=== PATIENT | female | born 1990 | race Caucasian/White ===

== ENCOUNTER 2017-05-10 12:29 | Inpatient (IN) ==
[2017-05-10] MEDS ORDERED: IOPAMIDOL 100 ML BOTTLE IJ ONE (12:30)
[2017-05-10] MEDS ORDERED: KETOROLAC 30 MG/ML VIAL IV ONE (13:02)
[2017-05-10] MEDS ORDERED: ONDANSETRON 4 MG/2 ML VIAL IV ONE ×3 (13:02→17:40)
[2017-05-10] MEDS ORDERED: 0.9 % SODIUM CHLORIDE 1,000 ML IV ONE (13:09)
[2017-05-10 13:37] LABS: Basophils # (Auto) 0 K/mcL (0.0-0.3); Basophils % (Auto) 0.1 % (0.0-2.0); Eosinophils # (Auto) 0 K/mcL (0.0-0.7); Eosinophils % (Auto) 0.3 % (0.0-7.0); Granulocytes % (Auto) 84.9 % (38.0-78.0); Lymphocytes # (Auto) 0.9 K/mcL (1.5-4.8); Lymphocytes % (Auto) 6.6 % (15.5-49.0); Mean Cell Volume 91.5 fL (80.0-100.0); Mean Corpuscular HGB Conc 34.2 g/dL (31.0-36.0); Mean Corpuscular Hemoglobin 31.3 pg (26.0-34.0); Monocytes # (Auto) 1.1 K/mcL (0.1-0.9); Monocytes % (Auto) 8.1 % (1.0-12.0); Platelet Count 223 K/mcL (140-440); RBC 4.05 M/mcL (4.00-5.20); Red Cell Distribution Width 12.2 % (11.5-14.5)
[2017-05-10 13:59] LABS: ALT/SGPT 8 U/l (0-40); Albumin 4.1 gm/dL (3.2-5.2); Albumin/Globulin Ratio 1.1 (1.0-2.3); Alkaline Phosphatase 44 U/L (39-117); Amylase 48 U/L (28-100); Blood Urea Nitrogen 8 mg/dl (6-20); Lipase 25 U/L (7-60)
--- NOTE | 2017-05-10 14:44 | Ultrasound Report ---
CLINICAL INFORMATION: Right upper quadrant pain COMPARISON: None. FINDINGS: The liver is moderately enlarged with a vertical dimension of 18.5 cm. Parenchyma is diffusely hypoechoic suggestive of inflammation or edema - no focal hepatic lesion. Gallbladder and bile ducts are normal CBD is 4 mm. The pancreas is unremarkable. No free fluid IMPRESSION: Moderate hepatomegaly with decreased echotexture suggesting edema or inflammation.] LFTs. Gallbladder, bile ducts and pancreas are normal Interpreted and Authenticated by: Jovi Philip 05/10/17
[2017-05-10] MEDS ORDERED: ONDANSETRON 4 MG/2 ML VIAL IV PRN ×2 (15:53→18:24)
[2017-05-10] MEDS ORDERED: NALOXONE HCL 0.4 MG/ML VIAL IV PRN (15:53)
[2017-05-10] MEDS ORDERED: PIPERACILLIN SODIUM/TAZOBACTAM 3.375 GM in DEXTROSE 5% IN WATER 50 ML IV ONE (15:53)
--- NOTE | 2017-05-10 15:56 | Emergency Department Note ---
Abdominal Pain HPI - General Chief Complaint: Abdominal Pain Stated Complaint: right lower abd pain, nausea Time Seen by Provider: 05/10/17 13:01 Source: patient Mode of arrival: ambulatory Limitations: no limitations - History of Present Illness HPI Narrative: 26-year-old female with right upper quadrant/right lower quadrant pain for the last 4 days. It is a burning stabbing type pain. Omeprazole and Tums which normally helps with her previous ulcer type pain did not help this time. No fever but she does note night sweats. No vomiting or diarrhea. She is having some nausea though. She denies any sick exposures. She did see Dr. Coleman yesterday minor care and they did an ultrasound of the abdomen which was unrevealing. Comes in today for worsening pain - Related Data Home Medications Medication Instructions Recorded Confirmed omeprazole 20 mg capsule,delayed 20 mg PO QDAY 05/08/17 05/11/17 release Previous Rx's Medication Instructions Recorded norgestimate-ethinyl estradiol 1 tab PO QDAY #28 tab 08/10/16 0.18 mg/0.215mg/0.25mg-35 mcg(28)tablet Allergies Allergy/AdvReac Type Severity Reaction Status Date / Time Paroxetine [From Paxil] AdvReac Intermediate insomnia, Verified 05/11/17 02:01 irritability, restlessness Review of Systems All systems ED: reviewed and negative except as stated. Abdominal Pain PMH - Past Medical History Attestation: Yes: The following information was validated with the patient. Medical history: Reports: other (Peptic ulcer disease) Surgical history ED: Reports: no surgical history - Social History Smoking status: Former smoker Physical Exam Thin female. Normocephalic atraumatic. Conjunctive are clear sclerae nonicteric. No nasal discharge or congestion. Oropharynx pink and moist. Neck is supple without lymphadenopathy or thyromegaly. Heart is regular rate and rhythm no murmur appreciated. Lungs clear to auscultation bilaterally without wheezes rales rhonchi or respiratory distress. Abdomen is soft but tender right upper quadrant umbilicus and right lower quadrant. Mild guarding unclear if this peritoneal signs. No pedal edema. +2 radial pulse. Alert oriented Limitations: no limitations Course Vital Signs Temperature 98.9 F 05/10/17 12:29 Pulse Rate 106 H 05/10/17 12:29 Respiratory Rate 18 05/10/17 12:29 Blood Pressure 117/78 05/10/17 12:29 Pulse Oximetry (%) 100 05/10/17 12:29 Temperature 98.9 F 05/11/17 07:39 Pulse Rate 98 H 05/11/17 07:39 Respiratory Rate 16 05/11/17 07:39 Blood Pressure 92/59 05/11/17 07:39 Pulse Oximetry (%) 97 05/11/17 07:39 Abdominal Pain - Medical Records Medical records reviewed: Yes I reviewed the patient's medical records. - Lab Data Lab results reviewed: Yes I reviewed the patient's lab results. Result diagrams: 05/11/17 04:47 05/10/17 13:09 Lab Results 05/10/17 05/10/17 05/10/17 Range/Units 13:09 13:09 13:09 WBC 13.6 H (4.5-11.0) K/mcL RBC 4.05 (4.00-5.20) M/mcL Hgb 12.7 (12.0-15.0) g/dL Hct 37.1 (36.0-48.0) % POC Hct 37.0 (36.0-48.0) % MCV 91.5 (80.0-100.0) fL MCH 31.3 (26.0-34.0) pg MCHC 34.2 (31.0-36.0) g/dL RDW 12.2 (11.5-14.5) % Plt Count 223 (140-440) K/mcL MPV 7.1 L (7.4-10.4) fL Gran % 84.9 H (38.0-78.0) % Lymph % (Auto) 6.6 L (15.5-49.0) % [place] % (Auto) 8.1 (1.0-12.0) % Eos % (Auto) 0.3 (0.0-7.0) % Baso % (Auto) 0.1 (0.0-2.0) % Gran # 11.6 H (1.8-8.0) K/mcL Lymph # (Auto) 0.9 L (1.5-4.8) K/mcL [place] # (Auto) 1.1 H (0.1-0.9) K/mcL Eos # (Auto) 0 (0.0-0.7) K/mcL Baso # (Auto) 0 (0.0-0.3) K/mcL VBG Lactic Acid 0.7 (0.5-2.2) mmol/L POC Sodium 138 (133-145) mmol/L Sodium 138 (133-145) mmol/L POC Potassium 3.6 (3.3-5.1) mmol/L Potassium 3.7 (3.3-5.1) mmol/L POC Chloride 103 (96-108) mmol/L Chloride 99 (96-108) mmol/L Carbon Dioxide 23 (22-30) mmol/L POC Total CO2 24 (22-30) mmol/L Anion Gap 16.0 (8-16) POC BUN 7 (6-20) mg/dl BUN 8 (6-20) mg/dl Creatinine 0.9 (0.6-1.1) mg/dl POC Creatinine 0.8 (0.6-1.1) mg/dl GFR Calculation 87 Glucose 83 (70-105) mg/dL POC Glucose 85 (70-105) mg/dL Calcium 9.4 (8.6-10.4) mg/dl POC WB Ioniz Calcium 1.13 L (1.16-1.32) mmol/L Total Bilirubin 0.6 (0.0-1.0) mg/dL AST 12 (0-37) U/l ALT 8 (0-40) U/l Alkaline Phosphatase 44 (39-117) U/L Total Protein 7.7 (5.9-8.4) gm/dL Albumin 4.1 (3.2-5.2) gm/dL Globulin 3.6 (2.2-3.7) gm/dL Albumin/Globulin Ratio 1.1 (1.0-2.3) Amylase 48 (28-100) U/L Lipase 25 (7-60) U/L - Radiology Data Radiology results reviewed: Yes I reviewed the patient's radiology results. Initially ordered gallbladder ultrasound as I felt this was more of her right upper quadrant tenderness on exam and gallbladder was lead diagnosis possibility given her nausea and ulcer history. Gallbladder ultrasound was negative. As I had continued suspicion about right lower quadrant pain, with leukocytosis, I reexamined her and ordered the CT scan of the abdomen pelvis which showed perforated enthesitis Disposition Pt seen by [employer]/PA only: No Clinical Impression: Appendicitis with perforation Summary: Reviewed her note from Dr. Coleman yesterday as well as the ultrasound of the pelvis yesterday which was negative patient initially treated with pain medicine, nausea medicine, IV fluids and worked up with labs in gallbladder ultrasound. Ultrasound was negative but on reexamination of the belly pain had localized to right lower quadrant and so CT scan of the abdomen pelvis was ordered. This showed a perforated appendicitis and so I contacted Dr. Xavi Phelps, general surgeon, who agreed to accept the patient for further care. Physician orders are written Disposition: Xfer As Outpt/Obs ([facility]) Condition: Fair
--- NOTE | 2017-05-10 15:57 | Cat Scan Report ---
CLINICAL INFORMATION: Right lower quadrant pain nausea and elevated white blood cell count COMPARISON: None. TECHNIQUE: Following enteric contrast, 80 cc of Isovue-300 were injected intravenously, and 60 seconds later, 0.625 mm helical slices were obtained from the mid heart through the subtrochanteric regions. Following reconstruction, 2.5 mm sagittal, coronal and axial reformatted images were processed and reviewed at bone, lung and soft tissue windows. Five minutes later, 0.625 mm helical slices were obtained from the mid heart through the kidneys and viewed at soft tissue windows.The exam was performed using radiation dose optimization techniques including, but not limited to, automated exposure control, adjustment of the mA and/or kV according to patient size and use of iterative reconstruction technique. FINDINGS: Lung bases show no abnormality - no effusion. The visualized heart is normal. Images through the abdomen show the gallbladder and bile ducts, liver, both kidneys, adrenal glands, spleen, pancreas and aorta including aortic branches be normal in size configuration and attenuation without focal lesion. Images through the pelvis show urinary bladder to be normal. Uterus anteflexed and normal in size: 7.5 x 4 cm. There is a 5.5 cm thick-walled fluid collection in the right true pelvis which contains a 10 mm calcification. The right colon and cecum are elongated and extend all the way into this region. It appears that the abscess communicates with the cecum. This almost certainly represents a ruptured appendix which have evolved into a 5.5 cm periappendiceal abscess. There is inflammation in the surrounding fat. The remainder of the colon, small bowel and stomach are normal. There are no osseous abnormalities. IMPRESSION: 5.5 cm thick-walled fluid collection in the deep true pelvis which contains a 10 mm calcification. This almost certainly a ruptured appendix containing an appendicolith which has evolved into a periappendiceal abscess. This diagnosis is also supported clinically. A tubular ovarian abscess is possible, but less likely. Interpreted and Authenticated by: Jovi Philip 05/10/17
[2017-05-10] MEDS ORDERED: 0.9 % SODIUM CHLORIDE 1,000 ML IV SCH (16:00)
[2017-05-10] MEDS ORDERED: HYDROmorphone 2 MG/ML SYRINGE IV ONE (16:27)
--- NOTE | 2017-05-10 17:19 | General Surg History&Physical ---
History of Present Illness Patient information: Note initiated : 05/10/17 at 5:17 pm Service Date, if different from initiated Date: [] Patient: Esha Denise a 26 y/o F admitted on for right lower abd pain, nausea. Chief Complaint: [] HPI: Ms. Denise is a 26 year old F admitted with right lower quadrant pain. She had onset of bilateral lower abdominal pain with nausea on Monday. The pain progressed and she was seen in urgent care on Monday where she was noted to have bilateral lower quadrant tenderness with a normal white count. test was negative. She had a transvaginal ultrasound done which was negative. She was treated symptomatically however her pain increased and she had nausea with vomiting. She came to the emergency room today [place] [id number] of the abdomen shows a pericecal abscess with fecalith and tissue edema compatible with possible perforated appendix with appendiceal abscess.. She is admitted and will have appendectomy.. Review of Systems - Constitutional anorexia, fever(s), headache(s), malaise, weight loss - EENT Nose, mouth and throat: dizziness, headache(s), no dysphagia - Cardiovascular diaphoresis, no chest pain with activity, no dyspnea on exertion, no palpatations, no rapid heart rate, no syncope - Respiratory no dyspnea on exertion, no wheezing, no chest congestion, no pain with cough - Gastrointestinal abdominal pain, bloating, heartburn, nausea, vomiting - Genitourinary Genitourinary: no nocturia, no urinary frequency, no urinary hesitancy, no urinary urgency - Musculoskeletal no arthralgias, no myalgias, no numbness, no stiffness - Integumentary no changing lesions, no pruritus, no rash - Neurological dizziness, headache(s), no abnormal gait, no abnormal hearing, no confusion, no convulsions - Psychiatric abnormal sleep pattern, anxiety, depression - Endocrine no fatigue, no polydipsia, no polyphagia, no polyuria - Hematologic/Lymphatic no easy bleeding, no easy bruising, no lymphadenopathy - Allergic/Immunologic no tongue swelling, no throat swelling, no uticaria, no wheezing, no lip swelling Past History Past medical history: no chronic medical condition Past surgical history: no operative procedures Past family history: diabetes mellitus Hypertension 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 : Tobacco use Occasional wine use Negative drug use Medications and Allergies Home Medications Medication Instructions Recorded Confirmed Type norgestimate-ethinyl estradiol 1 tab PO QDAY #28 tab 08/10/16 05/10/17 Rx 0.18 mg/0.215mg/0.25mg-35 mcg(28)tablet omeprazole 20 mg capsule,delayed 20 mg PO QDAY 05/08/17 05/10/17 History release Allergies Allergy/AdvReac Type Severity Reaction Status Date / Time morphine AdvReac Intermediate Vomiting Verified 05/10/17 16:47 Paroxetine [From Paxil] AdvReac Intermediate insomnia, Verified 05/08/17 13:23 irritability, restlessness Exam Temp Pulse Resp BP Pulse Ox 98.9 F 88 18 116/63 100 05/10/17 12:29 05/10/17 17:12 05/10/17 17:12 05/10/17 17:12 05/10/17 17:12 - General physical appearance well developed, well nourished, no distress - Eyes PERRL, normal ocular movement - ENT normal pinna, normal nares, normal mucosa, no hearing loss, no congestion - Head Head exam IM: Present: atraumatic, normocephalic - Neck no masses, no bruits, trachea midline, no lymphadectomy, no venous distension - Cardiovascular Cardiovascular exam IM: Present: normal rate and rhythm - Respiratory normal expansion, normal respiratory effort, clear to percussion, clear to auscultation - Abdomen Abdomen: Present: soft, tender, bowel sounds, distended (diffusely distended with tenderness in both lower quadrants and suprapubic area; guarding with rebound right lower quadrant) Hernia: Present: none - Genitourinary Present: normal external genitalia - Integumentary Present: no rash, no growths, no abnormal pigmentation - Neurologic Present: normal coordination, normal sensation - Musculoskeletal Present: normal gait, normal posture - Psychiatric Present: oriented to time, oriented to person, oriented to place, speech is normal, memory intact Assessment and Plan (1) Appendicitis with perforation patient counseled for laparoscopic appendectomy with drainage of pelvic abscess. This will be done tonight Started on Zosyn 3.375 g IV every 6 Status: Acute (2) Pelvic abscess Status: Acute (3) Anxiety Status: Chronic Comment: along with depression (4) Depression Status: Chronic Comment: her biological father (traumatic ) when she was about 6 years old and her step father committed suicide in 2008; was previously treated with Paxil but could not handle side effects (insomnia, restlessness, anxiety) Qualifiers: Depression Type: major depressive disorder Major depression recurrence: recurrent Active/Remission status: currently active Major depression episode severity: moderate Qualified Code(s): F33.1 - Major depressive disorder, recurrent, moderate
[2017-05-10] MEDS ORDERED: PROPOFOL 200 MG/20 ML VIAL IV ONE (17:40)
[2017-05-10] MEDS ORDERED: LIDOCAINE HCL/PF 100 MG/5 ML SYRINGE IV ONE (17:40)
[2017-05-10] MEDS ORDERED: KETAMINE 100 MG/ML ML IV ONE (17:40)
[2017-05-10] MEDS ORDERED: GLYCOPYRROLATE 0.2 MG/ML VIAL IV ONE (17:40)
[2017-05-10] MEDS ORDERED: MIDAZOLAM 5 MG/5 ML VIAL IV ONE (17:40)
[2017-05-10] MEDS ORDERED: ROCURONIUM 10 MG/ML ML IV ONE (17:40)
[2017-05-10] MEDS ORDERED: fentaNYL 100 MCG/2 ML VIAL IV ONE ×2 (17:40→19:52)
[2017-05-10] MEDS ORDERED: NEOSTIGMINE 1 MG/ML VIAL IV ONE (17:40)
[2017-05-10] MEDS ORDERED: MEPERIDINE 50 MG/ML SYRINGE IM PRN (18:24)
[2017-05-10] MEDS ORDERED: MEPERIDINE 25 MG/ML SYRINGE IV PRN (18:24)
[2017-05-10] MEDS ORDERED: IPRATROPIUM/ALBUTEROL 3 ML AMPUL.NEB NEB PRN (18:24)
[2017-05-10] MEDS ORDERED: PROMETHAZINE 25 MG/ML VIAL IV PRN (18:24)
[2017-05-10] MEDS ORDERED: PROMETHAZINE 25 MG/ML VIAL IM PRN (18:24)
[2017-05-10] MEDS ORDERED: LACTATED RINGERS 1,000 ML IV SCH (18:30)
--- NOTE | 2017-05-10 19:21 | Brief Operative Note ---
Date of procedure: 05/10/17 Pre-op diagnosis: acute appendicitis with possible abscess Post-op diagnosis: other (acute suppurative appendicitis without perforation but pelviphlegmon) Procedure: laparoscopic appendectomy Grafts/Implants: No Anesthesia: GETA Findings: large thickened appendix deep in pelvis adherent to uterus and bladder but not perforated base of appedix thickened but staple line looked secure Complications: none Surgeon: Javon Phelps Estimated blood loss (cc): 20 Specimens Removed/Pathology: other (appendix) Condition: stable Disposition: PACU
[2017-05-10] MEDS ORDERED: PROMETHAZINE 25 MG/ML VIAL ONE (19:38)
[2017-05-10] MEDS ORDERED: MEPERIDINE 50 MG/ML SYRINGE ONE (19:38)
[2017-05-10] MEDS ORDERED: ONDANSETRON 4 MG/2 ML VIAL ONE (19:52)
[2017-05-10] MEDS: fentaNYL 100 MCG/2 ML VIAL IV PRN ×3 (19:53→20:14)
[2017-05-10] MEDS ORDERED: SCOPOLAMINE 1 PATCH PATCH TOPICAL ONE (20:28)
[2017-05-10] MEDS ORDERED: ACETAMINOPHEN 325 MG TABLET PO PRN (20:40)
[2017-05-10] MEDS ORDERED: SCOPOLAMINE 1 PATCH PATCH ONE (20:43)
[2017-05-10] MEDS: HYDROmorphone 2 MG/ML SYRINGE IV PRN ×2 (20:52→22:59)
[2017-05-10] MEDS ORDERED: HYDROmorphone 2 MG/ML SYRINGE ONE (20:55)
[2017-05-10 21:47] LABS: Basophils # (Auto) 0 K/mcL (0.0-0.3); Basophils % (Auto) 0.1 % (0.0-2.0); Eosinophils # (Auto) 0 K/mcL (0.0-0.7); Eosinophils % (Auto) 0.1 % (0.0-7.0); Granulocytes % (Auto) 84.8 % (38.0-78.0); Lymphocytes # (Auto) 0.9 K/mcL (1.5-4.8); Lymphocytes % (Auto) 10.4 % (15.5-49.0); Mean Cell Volume 91.8 fL (80.0-100.0); Mean Corpuscular HGB Conc 34.5 g/dL (31.0-36.0); Mean Corpuscular Hemoglobin 31.7 pg (26.0-34.0); Monocytes # (Auto) 0.4 K/mcL (0.1-0.9); Monocytes % (Auto) 4.6 % (1.0-12.0); Platelet Count 188 K/mcL (140-440); RBC 3.34 M/mcL (4.00-5.20); Red Cell Distribution Width 12.2 % (11.5-14.5)
[2017-05-10] MEDS: 0.9 % SODIUM CHLORIDE 10 ML SYRINGE IV SCH (22:34)
[2017-05-10] MEDS: LACTATED RINGERS 1,000 ML IV SCH (22:59)
[2017-05-10] MEDS: PIPERACILLIN SODIUM/TAZOBACTAM 3.375 GM in DEXTROSE 5% IN WATER 50 ML IV SCH (22:59)
[2017-05-10] MEDS ORDERED: LORazepam 2 MG/ML VIAL IV PRN (23:08)
[2017-05-11] MEDS: LACTATED RINGERS 1,000 ML IV SCH ×2 (02:04→22:11)
[2017-05-11] MEDS: oxyCODONE/APAP 5/325MG TABLET PO PRN ×4 (02:04→15:19)
[2017-05-11] MEDS ORDERED: LORazepam 2 MG/ML VIAL ONE (03:22)
[2017-05-11] MEDS: PIPERACILLIN SODIUM/TAZOBACTAM 3.375 GM in DEXTROSE 5% IN WATER 50 ML IV SCH ×4 (05:46→22:25)
[2017-05-11] MEDS: 0.9 % SODIUM CHLORIDE 10 ML SYRINGE IV SCH ×3 (05:47→22:05)
[2017-05-11] MEDS ORDERED: HYDROmorphone 2 MG/ML SYRINGE ONE (05:58)
[2017-05-11 06:14] LABS: Basophils # (Auto) 0 K/mcL (0.0-0.3); Basophils % (Auto) 0.1 % (0.0-2.0); Eosinophils # (Auto) 0.1 K/mcL (0.0-0.7); Eosinophils % (Auto) 0.5 % (0.0-7.0); Granulocytes % (Auto) 83.9 % (38.0-78.0); Lymphocytes # (Auto) 1.1 K/mcL (1.5-4.8); Lymphocytes % (Auto) 9.3 % (15.5-49.0); Mean Cell Volume 92.3 fL (80.0-100.0); Mean Corpuscular HGB Conc 33.4 g/dL (31.0-36.0); Mean Corpuscular Hemoglobin 30.8 pg (26.0-34.0); Monocytes # (Auto) 0.7 K/mcL (0.1-0.9); Monocytes % (Auto) 6.2 % (1.0-12.0); Platelet Count 201 K/mcL (140-440); Red Cell Distribution Width 12.2 % (11.5-14.5)
[2017-05-11] MEDS: ONDANSETRON 4 MG/2 ML VIAL IV PRN ×3 (09:26→21:02)
[2017-05-11] MEDS: HYDROmorphone 2 MG/ML SYRINGE IV PRN ×4 (11:06→19:12)
--- NOTE | 2017-05-11 12:51 | General Surgery Progress Note ---
Surgical - Auxillary Note - Subjective Patient Information: Note initiated : 05/11/17 at 12:40 pm Service Date, if different from initiated Date: [] Patient: Esha Denise 26 y/o F admitted on 05/10/17 for RT Low Abd Pain, Nausea/Appendicitis w/Perforation. Chief Complaint: Patient resting in bed. Reports pain in lower abdomen--"hurts to move" Denies nausea or emesis but not feeling hungry or thirsty. Vital Signs Temp Pulse Resp BP Pulse Ox 98.9 F 98 H 16 92/59 97 05/11/17 07:39 05/11/17 07:39 05/11/17 07:39 05/11/17 07:39 05/11/17 07:39 Period Temp Pulse Resp BP Sys/Bar Pulse Ox Last 24 Hr 97.5 F-102.3 F 82-130 14-23 90-121/45-77 96-100 Intake and Output 05/10/17 05/11/17 05/11/17 21:59 05:59 13:59 Intake Total 2350 / 2350 478 / 478 50 / 50 Output Total 315 / 315 500 / 500 500 / 500 Balance 2035 / 2035 -22 / -22 -450 / -450 Weight 121 lb 121 lb Patient Weight 05/12/17 05:59 Weight 121 lb PE: No distress but appears uncomfortable. Chest: clear bilaterally CV: regular rhythm ABD: soft, moderately distended and tender at incisions and in lower right and mid abdomen. No rebound. PRAFUL drain serosanguineous. EXT: warm, no edema. DP pulses palpable. CBC and Chem 7 05/11/17 04:47 05/10/17 13:09 A/P: s/p appendectomy for appendicitis with phlegmon. Continue IV abx for at least 3-4 more days and then convert to p.o. antibiotics. PRAFUL drain to remain for [address] Phelps Post op ileus by exam: expected. Await return of bowel function. Add IV tylenol for pain control
[2017-05-11] MEDS: ACETAMINOPHEN 1,000 MG/100 ML BOTTLE IV PRN ×2 (13:04→20:49)
[2017-05-11] MEDS: DEXTROSE 5%-1/2NS W/20MEQ KCL 1,000 ML IV SCH (13:57)
[2017-05-11] MEDS: traMADol 50 MG TABLET PO PRN (21:30)
[2017-05-12] MEDS: DEXTROSE 5%-1/2NS W/20MEQ KCL 1,000 ML IV SCH ×3 (01:02→23:11)
[2017-05-12] MEDS: traMADol 50 MG TABLET PO PRN ×6 (01:03→23:10)
[2017-05-12] MEDS: PIPERACILLIN SODIUM/TAZOBACTAM 3.375 GM in DEXTROSE 5% IN WATER 50 ML IV SCH ×4 (04:07→23:11)
[2017-05-12] MEDS: ONDANSETRON 4 MG/2 ML VIAL IV PRN ×3 (04:08→21:43)
[2017-05-12] MEDS: HYDROmorphone 2 MG/ML SYRINGE IV PRN ×2 (04:08→12:16)
[2017-05-12] MEDS: ACETAMINOPHEN 1,000 MG/100 ML BOTTLE IV PRN ×3 (04:57→21:30)
[2017-05-12] MEDS: 0.9 % SODIUM CHLORIDE 10 ML SYRINGE IV SCH ×3 (06:00→23:11)
[2017-05-12 11:26] LABS: Appearance,Urine CLEAR; Bilirubin,Urine NEG (NEG); Color,Urine STRAW; Glucose,Urine (UA) NEGATIVE (NEG); Leukocyte Esterase,Urine NEG /uL (NEG); Nitrate,Urine NEG (NEG); Protein,Urine NEG (NEG); Specific Gravity,Urine 1.006 (1.000-1.035); Urine Blood NEG mg/dL (<0.03); Urobilinogen,Urine NEG (NEG)
--- NOTE | 2017-05-12 11:32 | General Surgery Progress Note ---
Surgical - Auxillary Note - Subjective Patient Information: Note initiated : 05/12/17 at 11:28 am Service Date, if different from initiated Date: [] Patient: Esha Denise 26 y/o F admitted on 05/10/17 for RT Low Abd Pain, Nausea/Appendicitis w/Perforation. Chief Complaint: patient resting in bed. reports that she feels better this morning. Adjustment and pain medications were made last night; tried tramadol. She reports the tramadol has been helpful. She continues to use twice a day Tylenol [facility] also offers good pain control. Nausea much improved. Denies flatus. Vital Signs Temp Pulse Resp BP Pulse Ox 98.9 F 100 H 16 105/59 92 05/12/17 07:19 05/12/17 04:00 05/12/17 07:19 05/12/17 07:19 05/12/17 07:19 Period Temp Pulse Resp BP Sys/Bar Pulse Ox Last 24 Hr 97.7 F-100.7 F 73-105 16-18 93-113/57-67 92-100 Intake and Output 05/11/17 05/12/17 05/12/17 21:59 05:59 13:59 Intake Total 630 / 630 2000 / 2000 1000 / 1000 Output Total 1750 / 1750 1900 / 1900 670 / 670 Balance -1120 / -1120 100 / 100 330 / 330 Weight 121 lb PE: CV: Regular rhythm PULM: Breath sounds clear bilate.ally. Taking Deeper inspirations today ABD: Soft, mild distention. Tender in lower abdomen a little less than yesterday. No guarding. PRAFUL drain serosanguineous. hypoactive bowel sounds. A/P: Stable postop. Postop ileus, await return of bowel function. Until then only sips of clear liquids as tolerated
--- NOTE | 2017-05-12 13:07 | Surgical Pathology Report ---
HISTOLOGY SPECIMEN MICROSCOPIC DIAGNOSIS APPENDIX, APPENDECTOMY: -- ACUTE APPENDICITIS WITH ASSOCIATED FIBRINOPURULENT SEROSITIS. (SE:gerard) PROCEDURAL IMPRESSION Appendicitis with perforation. GROSS DESCRIPTION Received in formalin labeled with the patient information and further designated as appendix on the requisition, is a 6.2 cm long by up to 1.9 cm in diameter purple-hdez appendix with up to 2.5 cm of attached yellow-hdez adipose tissue. The margin is stapled. There is a clip in the attached adipose tissue. There is a thickened yellow-hdez possible exudate on the surface and several disrupted areas. The lumen contains a small amount of red-brown hemorrhagic material. There is an apparent perforation near the stapled margin. Hardness Inspector sections submitted - three cassettes. ([facility]) Electronically Signed by: Ebony Jamison D.O.
[2017-05-12] MEDS ORDERED: HYDROmorphone 2 MG/ML SYRINGE IV ONE (13:36)
[2017-05-13] MEDS: ONDANSETRON 4 MG/2 ML VIAL IV PRN (03:03)
[2017-05-13] MEDS: HYDROmorphone 2 MG/ML SYRINGE IV PRN ×2 (03:24→15:14)
[2017-05-13] MEDS: traMADol 50 MG TABLET PO PRN ×5 (04:58→23:18)
[2017-05-13] MEDS: PIPERACILLIN SODIUM/TAZOBACTAM 3.375 GM in DEXTROSE 5% IN WATER 50 ML IV SCH ×4 (06:00→23:18)
[2017-05-13 06:37] LABS: Basophils # (Auto) 0 K/mcL (0.0-0.3); Basophils % (Auto) 0.4 % (0.0-2.0); Eosinophils # (Auto) 0.3 K/mcL (0.0-0.7); Eosinophils % (Auto) 2.7 % (0.0-7.0); Granulocytes % (Auto) 79.1 % (38.0-78.0); Lymphocytes % (Auto) 10.1 % (15.5-49.0); Mean Cell Volume 91.5 fL (80.0-100.0); Mean Corpuscular HGB Conc 33.9 g/dL (31.0-36.0); Monocytes # (Auto) 0.7 K/mcL (0.1-0.9); Monocytes % (Auto) 7.7 % (1.0-12.0); Platelet Count 231 K/mcL (140-440); Red Cell Distribution Width 12.5 % (11.5-14.5)
[2017-05-13] MEDS: 0.9 % SODIUM CHLORIDE 10 ML SYRINGE IV SCH ×2 (06:44→15:19)
--- NOTE | 2017-05-13 09:54 | General Surgery Progress Note ---
Surgical - Auxillary Note - Subjective Patient Information: Note initiated : 05/13/17 at 9:48 am Service Date, if different from initiated Date: [] Patient: Esha Denise 26 y/o F admitted on 05/10/17 for RT Low Abd Pain, Nausea/Appendicitis w/Perforation. Chief Complaint: Patient rested well overnight. Abdominal pain slightly improved. Passed some flatus last night but still having nausea. Taking some clears p.o. but not really hungry or thirsty. Vital Signs Temp Pulse Resp BP Pulse Ox 97.8 F 85 16 108/64 100 05/13/17 06:19 05/13/17 04:00 05/13/17 06:19 05/13/17 06:19 05/13/17 06:19 Period Temp Pulse Resp BP Sys/Bar Pulse Ox Last 24 Hr 97.6 F-99.0 F 79-90 16-20 98-108/52-68 96-100 Intake and Output 05/12/17 05/13/17 05/13/17 21:59 05:59 13:59 Intake Total 1770 / 1770 950 / 950 50 / 50 Output Total 1335 / 1335 640 / 640 300 / 300 Balance 435 / 435 310 / 310 -250 / -250 Weight 122 lb 8 oz PE: No acute distress Chest: clear bilaterally CV: regular rate and rhythm ABD:Moderately distended. Hypoactive bowel tones. PRAFUL with serous output. Incisions intact without erythema or discharge. CBC and Chem 7 05/13/17 05:00 05/10/17 13:09 A/P: s/p lap appendectomy for appendicitis with phlegmon Pain control currently adequate. Leukocytosis improved. Return of some bowel function but still nauseated. Will stay with clears p.o. until nausea improved.
[2017-05-13] MEDS: ACETAMINOPHEN 1,000 MG/100 ML BOTTLE IV PRN ×2 (15:25→23:56)
[2017-05-13] MEDS: DEXTROSE 5%-1/2NS W/20MEQ KCL 1,000 ML IV SCH (23:43)
[2017-05-14] MEDS: 0.9 % SODIUM CHLORIDE 10 ML SYRINGE IV SCH ×4 (00:02→21:03)
[2017-05-14] MEDS: PIPERACILLIN SODIUM/TAZOBACTAM 3.375 GM in DEXTROSE 5% IN WATER 50 ML IV SCH (05:59)
[2017-05-14] MEDS: traMADol 50 MG TABLET PO PRN ×4 (06:00→23:32)
--- NOTE | 2017-05-14 07:35 | General Surgery Progress Note ---
Surgical - Auxillary Note - Subjective Patient Information: Note initiated : 05/14/17 at 7:35 am Service Date, if different from initiated Date: [] Patient: Esha Denise 26 y/o F admitted on 05/10/17 for RT Low Abd Pain, Nausea/Appendicitis w/Perforation. Chief Complaint: Patient resting in bed. Says she feels better this morning. Pain control good. Feels less bloated. Still passing flatus, no stool as of yet. No nausea this morning. Vital Signs Temp Pulse Resp BP Pulse Ox 98.0 F 89 14 106/50 100 05/14/17 03:33 05/14/17 03:33 05/14/17 03:33 05/14/17 03:33 05/14/17 03:33 Period Temp Pulse Resp BP Sys/Bar Pulse Ox Last 24 Hr 98.0 F-98.6 F 70-89 14-16 92-106/50-66 95-100 Intake and Output 05/13/17 05/14/17 05/14/17 21:59 05:59 13:59 Intake Total 1100 / 1100 1150 / 1150 Output Total 1560 / 1560 840 / 840 Balance -460 / -460 310 / 310 Weight 122 lb PE: No distress. Appears more comfortable than previously Chest: clear to auscultation bilaterally CV: regular rate and rhythm ABD: mild distention: less than yesterday. RLQ and suprapubic tenderness: also less than yesterday. No guarding and rebound. PRAFUL drain with serous output. EXT: warm, no edema. DP pulses palpable bilaterally. A/P: s/p appendectomy for appendicitis with phlegmon. Post op ileus resolving. Patient feeling less bloated and hungry today. Nausea better and passing flatus. Advance diet as tolerated. Change abx to p.o. Will keep on abx for few more days as per Dr. Phelps's recommendation at checkout. May shower.
[2017-05-14] MEDS ORDERED: ACETAMINOPHEN 500 MG TABLET PO PRN (13:45)
[2017-05-14] MEDS: CIPROFLOXACIN 500 MG TABLET PO SCH (20:59)
[2017-05-15] MEDS: traMADol 50 MG TABLET PO PRN ×2 (04:52→12:28)
[2017-05-15] MEDS: 0.9 % SODIUM CHLORIDE 10 ML SYRINGE IV SCH (06:30)
[2017-05-15] MEDS: CIPROFLOXACIN 500 MG TABLET PO SCH (08:13)
--- NOTE | 2017-05-15 10:47 | General Surgery Progress Note ---
Surgical - Auxillary Note - Subjective Patient Information: Note initiated : 05/15/17 at 10:43 am Service Date, if different from initiated Date: [] Patient: Esha Denise 26 y/o F admitted on 05/10/17 for RT Low Abd Pain, Nausea/Appendicitis w/Perforation. Chief Complaint: Patient feeling much better. took in regular diet yesterday. Started on Cipro p.o. last night without issue. Nausea resolved. P.O meds of tramadol and tylenol adequate for pain Vital Signs Temp Pulse Resp BP Pulse Ox 98.7 F 72 18 102/64 98 05/15/17 06:53 05/15/17 06:53 05/15/17 06:53 05/15/17 06:53 05/15/17 06:53 Period Temp Pulse Resp BP Sys/Bar Pulse Ox Last 24 Hr 98.0 F-98.7 F 72-88 16-18 96-105/57-67 97-100 Intake and Output 05/14/17 05/15/17 05/15/17 21:59 05:59 13:59 Intake Total 800 / 800 500 / 500 Output Total 2450 / 2450 200 / 200 Balance -1650 / -1650 300 / 300 Weight 122 lb PE: No distress Abd: soft. Mild RLQ tenderness, no rebound or guarding. PRAFUL serous. Incisions C/D /I a/p: s/p appendectomy Stable post op with return of bowel function Home on p.o. abx and with p.o. pain meds. f/u in clinic later this week.
--- NOTE | 2017-05-30 11:14 | Operative Note ---
DATE OF OPERATION: 05/10/2017 PREOPERATIVE DIAGNOSIS: Acute appendicitis with possible abscess. POSTOPERATIVE DIAGNOSIS: Acute suppurative appendicitis with pelvic phlegmon but without perforation. PROCEDURE: Laparoscopic appendectomy. SURGEON: Javon Phelps M.D. FINDINGS: Large, thickened appendix deep in the pelvis with dense adherence to the uterus and bladder forming a phlegmon but no perforation. The base of the appendix was thickened, but there was enough viable tissue for a secure staple line. DESCRIPTION: Under general anesthesia, the patient's abdomen was prepped and draped in a sterile field. Supraumbilical incision was made. Veress needle was inserted uneventfully. Abdomen was insufflated with 2 liters of CO2. A 12 mm port was placed. Laparoscope was placed. There was free fluid in the pelvis, but it was not purulent. The cecum was very long and extended into the deep pelvis. The patient was placed in deep Trendelenburg position and rotated to the left. Under videoscopic guidance, a 5 mm port was placed in the suprapubic midline and a 12 mm port in the left lower quadrant. Using blunt dissection, the cecum was pulled from the pelvis. The tubes and ovaries were inflamed but were not involved in the inflammatory process. The appendix was very large and seropurulent with adherence to the posterior wall of the bladder as well as to the inferior surface of the uterus near the ureterocervical junction. More blunt dissection was carried out to free this inflammatory process up. Once this was done, the cecum was mobilized and was removed entirely out of the pelvis. The base of the appendix was extremely thickened, and the inflammation extended to the cecal wall with a very small margin of apparent normal tissue. The dissection was started by grasping the mid portion of the appendix and then using the Kitner dissectors, dissecting the appendix from the surrounding structures until I could find the tip. Once the tip was found, I followed this back to the base to make sure that all of the appendix was removed. A window was made in the mesoappendix. An Endo CARA stapler was placed through this window, and the base of the appendix with a small margin of the cecum was transected in order to get good adherence. There was a small perforation immediately above the staple line. This came out with the appendix. The mesoappendix was serially dissected and clipped with multiple clips and divided. There was some bleeding from the staple line in the base of the cecum, and this was controlled with multiple endoclips. Irrigation was carried out. The posterior wall of the bladder was inspected, and it appeared to be unremarkable except for inflammation. The uterus, tubes, and ovaries were unremarkable. Copious irrigation was carried out. The appendix was placed in an Endopouch and retrieved. A PRAFUL drain was placed and positioned at the base of the cecum. The cecum was allowed to fall back into the pelvis. Since it was so large, it was felt that it would find its way back in that area anyway. The drain was placed at the base of the cecum in the deep pelvis. The drain was brought out through the suprapubic midline incision. Irrigation of other fluid was carried out. CO2 was allowed to escape from the abdomen, and the ports were removed. Fascia in the midline and in the left lower quadrant was closed with multiple sutures of interrupted 0 Vicryl. Skin incisions were closed with wilder. Dressings were placed. The drain was secured with 2-0 nylon. The patient tolerated the procedure well. She was awakened and transferred to a bed and taken to the postanesthetic care unit in stable, satisfactory condition. LCS:marie Job ID: [id number] Doc ID: [id number] Javon Phelps M.D.
== END 2017-05-15 13:30 | disposition home or self-care (01) | DRG 339 ==
LOC: ED 12:29 → SUR 17:12 → ED 17:12 → MEDSUR 20:30
PROVIDERS: ADMIT Family Medicine Adult Medicine; ATTEND Surgery
PROC: LAPAPPY (ICD-10-PCS; 2017-05-10 17:38)